=== PATIENT | female | born 2005 | race Caucasian/White ===

== ENCOUNTER 2024-03-27 06:22 | Inpatient (IN) ==
[2024-03-27] MEDS ORDERED: REGLAN INJ 10 MG VIAL IVP PRN (06:38)
[2024-03-27] MEDS ORDERED: PITOCIN IVP ONE (06:38)
[2024-03-27] MEDS ORDERED: NUBAIN INJ 20 MG AMP IVP PRN (06:38)
[2024-03-27] MEDS: D5 1/2 NS 1,000 ML 1,000 ML IV SCH (07:00)
--- NOTE | 2024-03-27 07:18 | DR.OB ---
OB QUICK NOTE Assessment/Plan (1) Active labor at term: Assessment/Plan: L&D 03/27/24 at 7:10am S-No complaint. O-Afebrile,VSS TYY=932 with good LTV, +accel, no decel. CTX=mild uterine irritability CVX=3cm/90%/-1/VTX AROM with clear fluid. IUPC and FSE placed. A-IUP at 39 0/7 weeks for induction Rh- GERD P-Begin pitocin induction F/U labs Anticipate
[2024-03-27 07:19] LABS: BASOPHILS % (AUTO) 0.2 % (0.2-1.0); EOSINOPHILS % (AUTO) 0.4 % (0.9-2.9); HEMATOCRIT 32.6 % (36.0-47.0); HEMOGLOBIN 11.3 g/dL (12.0-16.0); LYMPHOCYTES # (AUTO) 2.2 X10^3/uL (1.3-2.9); LYMPHOCYTES % (AUTO) 18.7 % (21.0-51.0); MEAN CORPUSCULAR HEMOGLOBIN 30.7 pg (27.0-34.0); MEAN CORPUSCULAR HGB CONC 34.8 g/dL (33.0-35.0); MEAN CORPUSCULAR VOLUME 88.4 fL (80.0-100.0); MEAN PLATELET VOLUME 7.6 fL (7.4-11.0); MONOCYTES # (AUTO) 0.9 x10^3/uL (0.3-0.8); NEUTROPHILS # (AUTO) 8.4 x10^3/uL (2.2-4.8); NEUTROPHILS % (AUTO) 72.7 % (42.0-75.0); PLATELET COUNT 225 X10^3/uL (150.0-450.0); RED BLOOD COUNT 3.68 X10^6/uL (3.5-5.4); RED CELL DISTRIBUTION WIDTH 13.7 % (11.6-16.5); WHITE BLOOD COUNT 11.6 X10^3/uL (3.6-10.0)
[2024-03-27 07:32] LABS: BILIRUBIN,URINE NEGATIVE (NEGATIVE); BLOOD/HEMOGLOBIN,URINE 1+ (NEGATIVE); GLUCOSE, URINE NEGATIVE (NEGATIVE); KETONES,URINE NEGATIVE (NEGATIVE); LEUKOCYTE ESTERASE ,URINE 2+ (NEGATIVE); NITRITES,URINE NEGATIVE (NEGATIVE); PROTEIN,URINE 3+ (NEGATIVE); UROBILINOGEN,URINE 1+ (NORMAL)
[2024-03-27 07:36] LABS: BLOOD UREA NITROGEN 6 mg/dL (7-18); CALCIUM 8.6 mg/dL (8.5-10.1); CARBON DIOXIDE 23.1 mmol/L (21-32); CHLORIDE 105 mmol/L (98-107); COR NA(FOR HYPERGLY) 138 mmol/L (136-145); CREATININE 0.71 mg/dL (0.55-1.02); GLUCOSE 135 mg/dL (65-99); POTASSIUM 3.9 mmol/L (3.5-5.1); SODIUM 137 mmol/L (136-145); eGFR NON BLACK RACES > 60 (>60)
[2024-03-27] MEDS: OXYTOCIN 20 UNIT/1,000 ML-NS 20 UNIT/1,000 ML PLAST..BAG IV PRN (07:40)
[2024-03-27] MEDS: ZOFRAN INJ 4 MG VIAL IVP PRN (07:45)
[2024-03-27 07:53] LABS: APPEARANCE,URINE CLEAR (CLEAR); BACTERIA,URINE 1+ /HPF (NEGATIVE); COLOR,URINE YELLOW (YELLOW); RBC,URINE 0-2 /HPF (0-3); SQUAMOUS EPITHELIAL CELL,UR FEW /HPF (NEGATIVE); YEAST,URINE RARE /HPF (NEGATIVE)
[2024-03-27] MEDS ORDERED: BETADINE SOLN ONE (08:21)
[2024-03-27] MEDS: LR 1,000 ML IV 1,000 ML IV ONE (08:54)
[2024-03-27] MEDS: NAROPIN EPIDURAL 0.2% 100 ML ONE (09:50)
[2024-03-27] MEDS: FENTANYL VIAL INJ 100 mcg ONE (09:50)
[2024-03-27] MEDS: PITOCIN ONE (10:01)
[2024-03-27] MEDS: D5 1/2 NS 1,000 ML 1,000 ML IV ONE (13:00)
[2024-03-27] MEDS ORDERED: MOTRIN TAB 800 MG PO PRN (13:28)
--- NOTE | 2024-03-27 13:28 | DR.OB ---
OB QUICK NOTE Assessment/Plan (1) Active labor at term: Assessment/Plan: Delivery Note PRESS HELPER 03/27/24 at 1:13pm Patient complete and pushing. Head delivered over intact perineum. No nuchal cord. Nose and mouth bulb suctioned. Body delivered over intact perineum. Cord clamped x 2 and cut. Infant handed to attendant. Cord sent for gases. Placenta delivered spontaneously / intact / 3 vessel cord. No CVX / vaginal / perineal tears noted. Viable female infant delivered by , VTX/OA, wt=8'9" and 8/9, stable to NBN. Mother stable to RR. NOY=[id number].
[2024-03-27] MEDS: OXYTOCIN 20 UNIT/1,000 ML-NS 20 UNIT/1,000 ML PLAST..BAG IV SCH (13:30)
[2024-03-27] MEDS ORDERED: MILK OF MAGNESIA PO PRN (13:40)
[2024-03-27] MEDS ORDERED: AMBIEN PO PRN (13:40)
[2024-03-27] MEDS ORDERED: HYPERRHO S/D (or RHOGAM) IM PRN (13:40)
[2024-03-27] MEDS: EPHEDRINE SULFATE INJ ONE (14:21)
[2024-03-27] MEDS: ADACEL or BOOSTRIX TDaP VACCINE IM ONE (15:48)
[2024-03-27] MEDS: MOTRIN TAB 800 MG PO PRN (17:10)
[2024-03-27] MEDS ORDERED: PREPARATION H OINT RECTAL PRN (18:04)
[2024-03-28 05:05] LABS: HEMATOCRIT 31.1 % (36.0-47.0); HEMOGLOBIN 10.3 g/dL (12.0-16.0)
[2024-03-28] MEDS: PROTONIX TAB 40 MG PO SCH (09:49)
[2024-03-28] MEDS: PRENATAL PLUS PO SCH (09:49)
[2024-03-28] MEDS: DERMOPLAST PAIN RELIEF SPRAY TOP PRN (09:53)
[2024-03-28] MEDS: TUCKS MEDICATED PAD TOP PRN (11:37)
[2024-03-28 11:58] VITALS: BP 122/59; PULSE 87; TEMP 98.7; O2SAT 100
[2024-03-28 13:47] VITALS: RESP 18
== END 2024-03-28 15:40 | disposition home or self-care (01) | DRG 807 ==
LOC: LD 06:22 → MED/SURG 15:15
PROVIDERS: ADMIT Specialist; ATTEND Specialist